=== PATIENT | male | born 1935 | race Caucasian/White ===

== ENCOUNTER 2017-07-06 14:54 | Emergency (ER) | payer MEDICARE, OTHER ==
--- NOTE | 2017-07-06 17:34 | ER ---
HPI: A 81-year-old male here with complaints of chest pressure. He states that he has had these for a few days. It is in the mid line sternal area. It was higher, now it is moving down lower towards the bottom. The patient tells me that he does not feel sick. He has not been running a fever. He has had very minimal coughing. He tells me that he and another family member loaded a pickup load of dirt today and unloaded it with spades, which was quite a workup. It did not change his symptoms at all. He denies any shortness of breath, wheezing, or GI symptoms. The patient has history of atrial fibrillation and is on Coumadin. OBJECTIVE: GENERAL APPEARANCE: The patient is awake and alert, in no obvious distress. VITAL SIGNS: Reviewed as listed. They are normal. EARS: TMs are normal. Nares are patent. Oral mucous membranes are moist. Tonsils not enlarged or injected. Pharynx not inflamed. NECK: Supple. LUNGS: Clear to auscultation. I cannot hear any rales, wheezes, or rhonchi. CARDIAC: Heart sounds distinct without murmurs. SKIN: Warm and dry. LAB AND X-RAY STUDIES: EKG shows a normal sinus rhythm. LABS: Include a CBC with a normal white count. CMP is normal. Troponin is normal. Chest CT shows some opacities in the lower lungs consistent with either pneumonia or atelectasis. I questioned the patient further about the possibility of pneumonia. He tells me that he has had pneumonia before and it acts just like this. DIAGNOSIS: Pneumonia. TREATMENT PLAN: Levaquin 750 mg daily for 10 days. The patient is to go home, rest, and I want him to follow up with his primary care provider early next week in the clinic for a recheck. CRS/MODL /[id number]
[2017-07-06 17:38] VITALS: BP 130/67
--- NOTE | 2017-07-06 19:07 | CT ---
DATE OF SERVICE: 07/06/17 CLINICAL DATA: chest pressure UNENHANCED CHEST CT: Multislice acquisition through the chest without IV contrast was performed. No priors. There are mild emphysematous changes throughout both lungs. There are atelectatic changes of the dependent portion of both lungs and in both lung bases. There are linear densities in both lower lungs consistent with linear atelectasis or fibrosis. There is a 4 mm nodule noted on the left. It is within the lingular segment of the left upper lobe and lies adjacent to the major fissure. The lungs are otherwise clear. No pneumothorax. No pleural effusions. No hilar or mediastinal adenopathy. The heart size is normal. No pericardial effusion. There are coronary artery calcifications. The patient is status post cholecystectomy. There is a small hiatal hernia. IMPRESSION: 1. A 4 mm pleural-based nodule left upper lobe lingular segment. If the patient is high risk, a 12 month followup exam is recommended. If the patient is low risk, no followup is necessary. 2. Other findings as discussed above. [id number] [facility]
== END 2017-07-06 16:45 | disposition home or self-care (01) ==
LOC: LB.ED 14:54
DX: J18.9 Pneumonia, unspecified organism (principal)
CPT/HCPCS: 36415; 71250; 80053; 84484; 85025; 85610; 93005; 99284; 99285-25

== ENCOUNTER 2017-09-09 09:56 | Emergency (ER) | payer MEDICARE, OTHER ==
--- NOTE | 2017-09-09 11:19 | EDM.PDOC ---
ED HPI GENERAL MEDICAL PROBLEM - General Chief Complaint: General Stated Complaint: NOT FEELING WELL Time Seen by Provider: 09/09/17 10:10 Source of Information: Reports: Patient, Family History Limitations: Reports: No Limitations - History of Present Illness INITIAL COMMENTS - FREE TEXT/NARRATIVE: This is a 82 yo M here for left sided chest pain for the past day. He states it started this am around 6am and also had a chest pressure of the upper mid chest yesterday that has resolved. He has mild sob on exertion. Patient states he feels weak. Denies any fever or chills. Onset: Sudden Duration: Hour(s):, Constant Location: Reports: Chest Quality: Reports: Ache Severity: Mild Improves with: Reports: None Worsens with: Reports: None Associated Symptoms: Reports: No Other Symptoms - Related Data Allergies Allergy/AdvReac Type Severity Reaction Status Date / Time Sulfa (Sulfonamide Allergy Rash Verified 09/09/17 10:55 Antibiotics) Home Meds: Home Meds PARoxetine HCl [Paroxetine HCl] 10 mg PO DAILY 05/22/16 [History] Warfarin [Coumadin] 7.5 mg PO DAILY 09/09/17 [History] Past Medical History HEENT History: Reports: Glaucoma, Hard of Hearing Cardiovascular History: Reports: High Cholesterol, MS, SOB on Exertion Respiratory History: Reports: Pneumonia, Recurrent, Sleep Apnea, Other (See Below) Other Respiratory History: use of oxygen consentrator and Cpap Gastrointestinal History: Reports: GERD, Other (See Below) Other Gastrointestinal History: diarrhea 4 days ago Musculoskeletal History: Reports: Arthritis Psychiatric History: Reports: Anxiety Endocrine/Metabolic History: Reports: None Oncologic (Cancer) History: Reports: Renal Dermatologic History: Reports: None - Infectious Disease History Infectious Disease History: Reports: Chicken Pox, Measles - Past Surgical History Respiratory Surgical History: Reports: Other (See Below) GI Surgical History: Reports: Cholecystectomy, Colonoscopy, Hernia, Inguinal, Hernia Repair/Other Musculoskeletal Surgical History: Reports: Knee Replacement, Other (See Below) Social & Family History - Family History Family Medical History: Noncontributory - Tobacco Use Smoking Status *Q: Never Smoker Second Hand Smoke Exposure: No - Recreational Drug Use Recreational Drug Use: No ED ROS GENERAL - Review of Systems Review Of Systems: ROS reveals no pertinent complaints other than HPI. ED EXAM, GENERAL - Physical Exam Exam: See Below Exam Limited By: No Limitations General Appearance: Alert, WD/WN, No Apparent Distress Eye Exam: Bilateral Eye: EOMI, PERRL Ears: Normal External Exam Nose: Normal Inspection Throat/Mouth: Normal Inspection Head: Atraumatic, Normocephalic Neck: Normal Inspection Respiratory/Chest: No Respiratory Distress, Lungs Clear, Normal Breath Sounds Cardiovascular: Normal Peripheral Pulses, Irregularly Irregular GI/Abdominal: Normal Bowel Sounds Extremities: Normal Inspection Neurological: Alert, Oriented, CN II-XII Intact Course - Vital Signs Last Recorded V/S: Last Vital Signs Temp 36.6 C 09/09/17 10:12 Pulse 79 09/09/17 11:31 Resp 18 09/09/17 11:31 BP 147/88 H 09/09/17 11:31 Pulse Ox 95 09/09/17 11:31 - Orders/Labs/Meds Orders: Active Orders 24 hr Category Date Time Status EKG Documentation Completion [RC] ASDIRECTED Care 09/09/17 10:27 Active Chest 1V Frontal [CR] Stat Exams 09/09/17 10:28 Taken EKG 12 Lead [EK] Routine Ther 09/09/17 10:27 Ordered Labs: Laboratory Tests 09/09/17 09/09/17 09/09/17 Range/Units 10:30 10:30 10:30 WBC 7.3 (4.0-11.0) K/uL RBC 5.58 (4.50-6.50) M/uL Hgb 15.4 (13.0-18.0) g/dL Hct 45.6 (40.0-54.0) % MCV 82 (76-96) fL MCH 27.6 (27.0-32.0) pg MCHC 33.8 (31.0-35.0) g/dL RDW 15.8 (11.0-16.0) % Plt Count 278 (150-400) K/uL MPV 8.7 (6.0-10.0) fL Neut % (Auto) 49.7 (45.0-70.0) % Lymph % (Auto) 40.7 H (20.0-40.0) % [place] % (Auto) 8.2 (3.0-10.0) % Eos % (Auto) 1.0 (1.0-5.0) % Baso % (Auto) 0.4 (0.0-0.5) % Neut # (Auto) 3.65 (2.00-7.50) K/uL Lymph # (Auto) 2.98 (1.50-4.00) K/uL [place] # (Auto) 0.60 (0.20-0.80) K/uL Eos # (Auto) 0.07 (0.04-0.40) K/uL Baso # (Auto) 0.03 (0.02-0.10) K/uL PT 17.7 H D (9.0-11.5) sec INR 1.8 D (1.0-3.5) Sodium 140 (136-145) mmol/L Potassium 3.7 (3.5-5.1) mmol/L Chloride 103 (98-107) mmol/L Carbon Dioxide 28.4 (21.0-32.0) mmol/L Anion Gap 12.3 (5.0-15.0) mmol/L BUN 14 D (8-26) mg/dL Creatinine 1.03 (0.70-1.30) mg/dL Est Cr Clr Drug Dosing TNP Estimated GFR (MDRD) > 60 (>60) MLS/MIN BUN/Creatinine Ratio 13.6 (6-25) Glucose 92 (74-100) mg/dL Calcium 8.7 (8.5-10.1) mg/dL Troponin I < 0.017 (0.000-0.060) ng/mL Urine Color Urine Appearance (CLEAR) Urine pH (5.0-8.0) Ur Specific [place] (1.003-1.030) Urine Protein (NEGATIVE) mg/dL Urine Glucose (UA) (NEGATIVE) mg/dL Urine Ketones (NEGATIVE) mg/dL Urine Occult Blood (NEGATIVE) Urine Nitrite (NEGATIVE) Urine Bilirubin (NEGATIVE) Urine Urobilinogen (0.2-1.0) E.U./dL Ur Leukocyte Esterase (NEGATIVE) Urine RBC /HPF Urine WBC /HPF Ur Squamous Epith Cells /HPF Urine Bacteria /HPF 09/09/17 Range/Units 11:02 WBC (4.0-11.0) K/uL RBC (4.50-6.50) M/uL Hgb (13.0-18.0) g/dL Hct (40.0-54.0) % MCV (76-96) fL MCH (27.0-32.0) pg MCHC (31.0-35.0) g/dL RDW (11.0-16.0) % Plt Count (150-400) K/uL MPV (6.0-10.0) fL Neut % (Auto) (45.0-70.0) % Lymph % (Auto) (20.0-40.0) % [place] % (Auto) (3.0-10.0) % Eos % (Auto) (1.0-5.0) % Baso % (Auto) (0.0-0.5) % Neut # (Auto) (2.00-7.50) K/uL Lymph # (Auto) (1.50-4.00) K/uL [place] # (Auto) (0.20-0.80) K/uL Eos # (Auto) (0.04-0.40) K/uL Baso # (Auto) (0.02-0.10) K/uL PT (9.0-11.5) sec INR (1.0-3.5) Sodium (136-145) mmol/L Potassium (3.5-5.1) mmol/L Chloride (98-107) mmol/L Carbon Dioxide (21.0-32.0) mmol/L Anion Gap (5.0-15.0) mmol/L BUN (8-26) mg/dL Creatinine (0.70-1.30) mg/dL Est Cr Clr Drug Dosing Estimated GFR (MDRD) (>60) MLS/MIN BUN/Creatinine Ratio (6-25) Glucose (74-100) mg/dL Calcium (8.5-10.1) mg/dL Troponin I (0.000-0.060) ng/mL Urine Color Yellow Urine Appearance Clear (CLEAR) Urine pH 7.0 (5.0-8.0) Ur Specific [place] 1.010 (1.003-1.030) Urine Protein Negative (NEGATIVE) mg/dL Urine Glucose (UA) Negative (NEGATIVE) mg/dL Urine Ketones Negative (NEGATIVE) mg/dL Urine Occult Blood Negative (NEGATIVE) Urine Nitrite Negative (NEGATIVE) Urine Bilirubin Negative (NEGATIVE) Urine Urobilinogen 0.2 (0.2-1.0) E.U./dL Ur Leukocyte Esterase Negative (NEGATIVE) Urine RBC Not seen /HPF Urine WBC Not seen /HPF Ur Squamous Epith Cells Rare /HPF Urine Bacteria Not seen /HPF Departure - Departure Time of Disposition: 12:00 Disposition: Home, Self-Care 01 Condition: Good Clinical Impression: Chest pain not due to acute coronary syndrome - Discharge Information Referrals: PCP,None [Primary Care Provider] - Forms: ED Department Discharge Additional Instructions: If symptoms worsen or persist return to the ED or make an appointment at the clinic. If you have any questions or concerns please call us at [phone]. - My Orders Last 24 Hours: My Active Orders 09/09/17 10:27 EKG Documentation Completion [RC] ASDIRECTED EKG 12 Lead [EK] Routine 09/09/17 10:28 Chest 1V Frontal [CR] Stat - Assessment/Plan Last 24 Hours: My Active Orders 09/09/17 10:27 EKG Documentation Completion [RC] ASDIRECTED EKG 12 Lead [EK] Routine 09/09/17 10:28 Chest 1V Frontal [CR] Stat
[2017-09-09 11:32] VITALS: BP 147/88
--- NOTE | 2017-09-10 17:21 | CR ---
DATE OF SERVICE: 09/09/17 CLINICAL DATA: chest pain AP PORTABLE CHEST: Comparison is made to a prior exam dated 02/13/17. The heart size is normal. There are atelectatic/fibrotic changes in both lung bases. The lungs are otherwise clear. No pneumothorax. No pleural effusions. No significant interval changes from the prior study. [id number] [facility]
== END 2017-09-09 12:05 | disposition home or self-care (01) ==
LOC: LB.ED 09:56
DX: R07.9 Chest pain, unspecified (principal); Z88.2 Allergy status to sulfonamides; Z79.01 Long term (current) use of anticoagulants; F41.9 Anxiety disorder, unspecified
CPT/HCPCS: 36415; 71010; 80048; 81001; 84484; 85025; 85610; 93005; 99284; 99285-25

== ENCOUNTER 2017-11-17 22:25 | Emergency (ER) | payer MEDICARE, OTHER ==
[2017-11-17] MEDS ORDERED: Albuterol/Ipratropium 3.0-0.5 MG/3 ML Neb Soln NEB ONE (23:06)
[2017-11-17] MEDS ORDERED: Budesonide 0.5 MG/2 ML Neb Susp NEB ONE (23:07)
[2017-11-17] MEDS ORDERED: Albuterol 8 GM Inhaler INH ONE (23:20)
[2017-11-17] MEDS ORDERED: predniSONE 10 MG Tab ONE (23:20)
[2017-11-18 01:41] VITALS: BP 147/82
--- NOTE | 2017-11-18 12:31 | CR ---
DATE OF SERVICE: 11/17/2017 CLINICAL DATA: SOB AP CHEST: Comparison is made to a prior exam dated 09/09/17. The heart size is normal. There is calcification of the aortic arch. There are atelectatic/fibrotic changes at both lung bases. The lungs are otherwise clear. No pneumothorax. No pleural effusions. [id number] [facility]
--- NOTE | 2017-11-18 16:12 | ER ---
HISTORY OF PRESENT ILLNESS: An 82-year-old male here with his with complaints of mild shortness of breath and coughing. This has been ongoing for about 10 days. The patient just finished his Zithromax pack or Z-Sabino yesterday. He does not feel this helped; usually he finds that this medicine helps him when he gets this illness. The patient has not been running a fever. He has not had any problems with nausea, vomiting, or diarrhea. He has no history of COPD or CHF. He is a nonsmoker. OBJECTIVE: GENERAL APPEARANCE: The patient is awake and alert. He has an occasional cough that sounds dry. Vital signs are reviewed. The patient's blood pressure was 164/92 initially. He is afebrile. Sats are 99%. Physical exam of ears, TMs are normal. Nares are patent. Oral mucous membranes moist. Tonsils not enlarged or injected. Pharynx not inflamed. Neck is supple. Lungs are clear to auscultation with slightly reduced air exchange throughout the lung bruce. Deep breathing does seem to induce coughing for the patient. CARDIAC: Heart sounds distinct without murmurs. Abdomen is soft, protuberant, nontender to palpation. Skin is warm and dry. LABORATORY DATA: Labs today include a CBC which shows low bacterial markers. Viral markers are slightly elevated. CMP is unremarkable. BNP is normal. Chest x-ray was obtained showing a small amount of bronchitis-type changes in both bases. DIAGNOSIS: Bronchitis. TREATMENT PLAN: DuoNeb was given to the patient, followed by Pulmicort neb treatment. He states this definitely helped with his coughing and his feelings of shortness of breath. Listening to his lungs again reveals he is moving air better at this time and is not coughing with deep breathing. DIAGNOSIS: Bronchitis, viral in nature. TREATMENT PLAN: The patient will be sent home with an albuterol inhaler to use 2 puffs every 4 hours as needed, and I will put him on a short course of oral prednisone. He is to go home and rest for a couple of days, then increase activity as tolerated. Follow up is p.r.[email or web address]/MODL /[id number]
== END 2017-11-17 23:35 | disposition home or self-care (01) ==
LOC: LB.ED 22:25
DX: J20.8 Acute bronchitis due to other specified organisms (principal); B97.89 Other viral agents as the cause of diseases classified elsewhere
CPT/HCPCS: 36415; 71045; 80053; 83880; 85025; 99283; 99285; A9270; J7620; J7626